=== PATIENT | female | born 1960 | race Caucasian/White ===

== ENCOUNTER → 2019-01-09 | Outpatient (CLI) | payer BC ==
[2019-01-09 12:34] LABS: BASOPHILS % (AUTO) 0 % (0-10); EOSINOPHILS % (AUTO) 22 % (0-10); HEMATOCRIT 30 % (35-52); HEMOGLOBIN 9.4 G/DL (11.5-16.0); LYMPHOCYTES # (AUTO) 1.2 X 10^3 (1.0-4.0); LYMPHOCYTES % (AUTO) 9 % (12-44); MEAN CORPUSCULAR HEMOGLOBIN 30 PG (25-34); MEAN CORPUSCULAR HGB CONC 32 G/DL (32-36); MEAN CORPUSCULAR VOLUME 93 FL (80-99); MEAN PLATELET VOLUME 8.4 FL (7.4-10.4); MONOCYTES # (AUTO) 1.2 X 10^3 (0.0-1.0); MONOCYTES % (AUTO) 9 % (0-12); NEUTROPHILS # (AUTO) 8.2 X 10^3 (1.8-7.8); NEUTROPHILS % (AUTO) 60 % (42-75); PLATELET COUNT 371 10^3/uL (130-400); RED CELL DISTRIBUTION WIDTH 12.5 % (10.0-14.5); WHITE BLOOD COUNT 13.6 10^3/uL (4.3-11.0)
[2019-01-09 13:00] LABS: BAND NEUTROPHILS 0 %; BASOPHILS % (MANUAL) 1 %; EOSINOPHILS % (MANUAL) 22 %; ERYTHROCYTE SEDIMENTATION RATE > 140 MM/HR (0-30); LYMPHOCYTES % (MANUAL) 13 %; MONOCYTES % (MANUAL) 8 %; NEUTROPHILS % (MANUAL) 56 %; RBC MORPH NORMAL
[2019-01-09 13:09] LABS: ALBUMIN 3.5 GM/DL (3.2-4.5); BILIRUBIN,TOTAL 0.2 MG/DL (0.1-1.0); CALCIUM 9.3 MG/DL (8.5-10.1); CREATININE SERUM 1.06 MG/DL (0.60-1.30)
--- NOTE | 2019-01-09 13:15 | Diagnostic Imaging Report ---
INDICATION: Fever and cough. Time of exam 12:54 p.m. COMPARISON: No prior studies are available for comparison. FINDINGS: Heart is mildly enlarged. There appears to be some patchy infiltrate in the upper lobes bilaterally particularly on the right. Lower lung brewster are clear. There is no effusion or pneumothorax. The lungs are hyperinflated consistent with COPD. IMPRESSION: Patchy bilateral upper lobe pulmonary infiltrates suggestive of pneumonia. Dictated by: Dictated on workstation # [id number]
== END ==
LOC: RAD 12:12
PROVIDERS: ATTEND Nurse Practitioner Family
DX: R91.8 Other nonspecific abnormal finding of lung field (principal); R50.9 Fever, unspecified; R05 Cough
CPT/HCPCS: 36415; 71046; 80053; 85007; 85027; 85652

== ENCOUNTER 2019-01-30 13:58 | Outpatient (CLI) | payer BC ==
[2019-01-30] MEDS ORDERED: NS IV 1000 ML 1,000 ML ONE (14:04)
[2019-01-30] MEDS ORDERED: NS IV 1000 ML 1,000 ML IV ONE (14:30)
[2019-01-30] MEDS ORDERED: PANTOPRAZOLE 40 MG (PROTONIX) VIAL IV ONE (14:30)
[2019-01-30] MEDS ORDERED: ALPRAZolam 0.25 MG (XANAX) TAB PO ONE (14:30)
[2019-01-30 15:37] VITALS: BP 154/83
[2019-01-30] MEDS ORDERED: ADVAIR (17:07)
[2019-01-30] MEDS ORDERED: PRAVASTATIN PO (17:07)
--- NOTE | 2019-01-30 21:39 | Diagnostic Imaging Report ---
PA and lateral chest at 250 hours. INDICATION: Pneumonia. FINDINGS: The heart size is within normal limits and stable when compared to 01/09/2019. The prior study did note patchy alveolar/interstitial infiltrates involving both upper lobes, particularly on the right. On this study, both upper lobes do seem much better aerated. There is little if any residual density still present. The lung bases are generally clear. There is no pleural effusion identified. The mediastinum is not widened. The osseous structures are intact. IMPRESSION: The appearance of the chest has improved since the prior exam as both lungs do seem better aerated. There is little if any residual pneumonia/atelectasis still present involving the upper lobes. Dictated by: Dictated on workstation # [id number]
== END 2019-01-30 15:37 | disposition home or self-care (01) ==
LOC: SDC 13:58
PROVIDERS: ATTEND Family Medicine
DX: E86.0 Dehydration (principal); J18.9 Pneumonia, unspecified organism; R63.0 Anorexia; R10.13 Epigastric pain
CPT/HCPCS: 71046; 96360; 96374

== ENCOUNTER 2019-02-03 14:13 | Emergency (ER) | payer BC ==
[~2019-02-03] VITALS: Ht 157.5 cm; Wt 43.1 kg
[~2019-02-03 14:13] MED LIST: ADVAIR; PRAVASTATIN PO
--- OUTSIDE RECORDS SUMMARY | 2019-02-03 14:17 | XMS REPORT | Continuity of Care Document ---
Author Organization Unknown Address Unknown Allergies Active Description Code Type Severity Reaction Onset Reported/Identified Relationship to Patient Clinical Status Yes No Known Drug Allergies [id number] Drug Allergy Unknown N/A 01/30/2019 Medications There is no data. Problems Date Dx Coded Attending Type Code Diagnosis Diagnosed By 01/10/2019 IVAN RIDLEY APRN Ot R05 COUGH 01/10/2019 IVAN RIDLEY APRN Ot R50.9 FEVER, UNSPECIFIED 01/10/2019 IVAN RIDLEY APRN Ot R91.8 OTHER NONSPECIFIC ABNORMAL FINDING OF RAMANA 01/26/2019 IVAN RIDLEY APRN Ot R05 COUGH 01/26/2019 IVAN RIDLEY APRN Ot R50.9 FEVER, UNSPECIFIED 01/26/2019 IVAN RIDLEY APRN Ot R91.8 OTHER NONSPECIFIC ABNORMAL FINDING OF RAMANA Procedures There is no data. Results Test Result Range Complete blood count (CBC) with automated white blood cell (WBC) differential - 01/09/19 12:29 Blood leukocytes automated count (number/volume) 13.6 10*3/uL 4.3-11.0 Blood erythrocytes automated count (number/volume) 3.18 10*6/uL 4.35-5.85 Venous blood hemoglobin measurement (mass/volume) 9.4 g/dL 11.5-16.0 Blood hematocrit (volume fraction) 30 % 35-52 Automated erythrocyte mean corpuscular volume 93 [foz_us] 80-99 Automated erythrocyte mean corpuscular hemoglobin (mass per erythrocyte) 30 pg 25-34 Automated erythrocyte mean corpuscular hemoglobin concentration measurement (mass/volume) 32 g/dL 32-36 Automated erythrocyte distribution width ratio 12.5 % 10.0- 14.5 Automated blood platelet count (count/volume) 371 10*3/uL 130-400 Automated blood platelet mean volume measurement 8.4 [foz_us] 7.4-10.4 Automated blood neutrophils/100 leukocytes 60 % 42-75 Automated blood lymphocytes/100 leukocytes 9 % 12-44 Blood monocytes/100 leukocytes 9 % 0-12 Automated blood eosinophils/100 leukocytes 22 % 0-10 Automated blood basophils/100 leukocytes 0 % 0-10 Blood neutrophils automated count (number/volume) 8.2 10*3 1.8-7.8 Blood lymphocytes automated count (number/volume) 1.2 10*3 1.0-4.0 Blood monocytes automated count (number/volume) 1.2 10*3 0.0- 1.0 Automated eosinophil count 3.0 10*3/uL 0.0-0.3 Automated blood basophil count (count/volume) 0.0 10*3/uL 0.0-0.1 Blood manual differential performed detection - 01/09/19 12:29 Blood monocytes/100 leukocytes 8 % NRG Manual blood segmented neutrophils/100 leukocytes 56 % NRG Blood band neutrophils/100 leukocytes 0 % NRG Manual blood lymphocytes/100 leukocytes 13 % NRG Manual eosinophils/100 leukocytes in nose 22 % NRG Manual blood basophils/100 leukocytes 1 % NRG Blood erythrocyte morphology finding identification NORMAL NRG Erythrocyte sedimentation rate by westergren method - 01/09/19 12:29 Erythrocyte sedimentation rate by westergren method > mm 0- 30 Comprehensive metabolic panel - 01/09/19 12:29 Serum or plasma sodium measurement (moles/volume) 139 mmol/L 135-145 Serum or plasma potassium measurement (moles/volume) 4.0 mmol/L 3.6-5.0 Serum or plasma chloride measurement (moles/volume) 105 mmol/L 98-107 Carbon dioxide 22 mmol/L 21-32 Serum or plasma anion gap determination (moles/volume) 12 mmol/L 5-14 Serum or plasma urea nitrogen measurement (mass/volume) 18 mg/dL 7-18 Serum or plasma creatinine measurement (mass/volume) 1.06 mg/dL 0.60-1.30 Serum or plasma urea nitrogen/creatinine mass ratio 17 NRG Serum or plasma creatinine measurement with calculation of estimated glomerular filtration rate 53 NRG Serum or plasma glucose measurement (mass/volume) 101 mg/dL 70-105 Serum or plasma calcium measurement (mass/volume) 9.3 mg/dL 8.5-10.1 Serum or plasma total bilirubin measurement (mass/volume) 0.2 mg/dL 0.1-1.0 Serum or plasma alkaline phosphatase measurement (enzymatic activity/volume) 119 U/L 40-136 Serum or plasma aspartate aminotransferase measurement (enzymatic activity/volume) 18 U/L 5-34 Serum or plasma alanine aminotransferase measurement (enzymatic activity/volume) 23 U/L 0-55 Serum or plasma protein measurement (mass/volume) 8.0 g/dL 6.4-8.2 Serum or plasma albumin measurement (mass/volume) 3.5 g/dL 3.2-4.5 CALCIUM CORRECTED 9.7 mg/dL 8.5-10.1 Encounters ACCT No. Visit Date/Time Discharge Status Pt. Type Provider Facility Loc./Unit Complaint 01/28/18 01/27/2019 11:06:35 01/27/2019 23:59:59 [facility] Outpatient Tristan Lakhani [id number] 06/05/2014 11:42:50 06/05/2014 23:59:59 [facility] Outpatient Jl Delarosa [id number] 01/30/2019 13:58:00 01/30/2019 15:37:00 DIS Outpatient TRISTAN LAKHANI DO [facility] SDC DEHYDRATION,PNEUMONIA,ANOREXIA,DYSPEPSIA [id number] 01/09/2019 12:12:00 01/09/2019 23:59:59 [facility] Outpatient IVAN RIDLEY APRN [facility] RAD FEVER,COUGH
[2019-02-03] MEDS ORDERED: NS IV 1000 ML 1,000 ML IV SCH (14:55)
--- NOTE | 2019-02-03 15:07 | ED GI ---
General Chief Complaint: Abdominal/GI Problems Stated Complaint: POSS DEHYDRATION,SENT BY NEIL FOR FLUIDS Nursing Triage Note: PT WAS SENT OVER FROM [facility] FOR "SEVERE DEHYDRATION" PT WAS RECENTLY ON ANTIBIOTICS FOR PNEUMONIA. PT STATES SHE HAS HAD DIARRHEA AND A LOSS OF APPETITIE. PT DENIES FEVER. Sepsis Screen: No Definite Risk Source of Information: Patient Exam Limitations: No Limitations History of Present Illness Date Seen by Provider: Feb 03, 2019 Time Seen by Provider: 14:45 Initial Comments Patient presents to ER by private conveyance from home with chief complaint that yesterday she had some lab drawn by her primary care doctor, Dr. Lakhani and discovered her creatinine was 7 and her hemoglobin was low at 7. She does not have a history of chronic kidney disease. 3 weeks ago she was initiated on antibiotics for outpatient pneumonia and did not tolerate it well so Dr. Lakhani change the antibiotics and she completed 2 weeks course. She's continued to have GI distress, diarrhea, decreased appetite and has lost 10 pounds over the past 3 weeks. She is not having any pain shortness of breath or cough anymore. She said that the repeat x-ray of her chest demonstrated that the pneumonia had resolved. She does feel tired and dehydrated. She has a history of asthma but she's not having any shortness of breath, wheezing and is not using her albuterol inhaler more than usual. She states she put a normal complement of urine just prior to coming in to the ER. Allergies and Home Medications Allergies Coded Allergies: No Known Drug Allergies (Unverified , 01/30/19) Home Medications [Pravastatin] Unknown Strength , Unknown Dose PO DAILY, (Reported) Patient Home Medication List Home Medication List Reviewed: Yes Review of Systems Review of Systems Constitutional: No chills, No diaphoresis EENTM: No Blurred Vision, No Double Vision Respiratory: Denies Cough, Denies Shortness of Air Cardiovascular: Denies Chest Pain, Denies Edema Gastrointestinal: Denies Abdomen Distended, Denies Abdominal Pain; Diarrhea; Denies Nausea; Poor Appetite, Poor Fluid Intake Genitourinary: Denies Burning, Denies Discharge, Denies Drainage Musculoskeletal: No back pain, No joint pain Past Jlcadmr-Axvmvq-Kqdyvd Hx Patient Social History Alcohol Use: Denies Use Recreational Drug Use: No Smoking Status: Never a Smoker Recent Foreign Travel: No Contact w/Someone Who Travel: No Recent Infectious Disease Expo: No Physical Abuse: No Sexual Abuse: No Mistreated: No Fear: No Physical Exam Vital Signs Vital Signs - First Documented 02/03/19 14:53 Temp 98.0 Pulse 87 Resp 18 B/P (MAP) 183/84 (117) Capillary Refill : Less Than 3 Seconds Height/Weight/BMI Height: 5'2.00" Weight: 95lbs. 0oz. 43.865857ix; BMI Method:Stated General Appearance: WD/WN, no apparent distress HEENT: PERRL/EOMI, normal ENT inspection, TMs normal, pharynx normal Neck: non-tender, full range of motion, normal inspection Respiratory: chest non-tender, lungs clear, normal breath sounds, no respiratory distress, no accessory muscle use Cardiovascular: normal peripheral pulses, regular rate, rhythm, no edema Peripheral Pulses: 1+ Radial Pulses (R), 1+ Radial Pulses (L) Gastrointestinal: normal bowel sounds, non tender, soft Neurologic/Psychiatric: alert, normal mood/affect, oriented x 3 Skin: normal color, warm/dry Progress/Results/Core Measures Results/Orders Lab Results Laboratory Tests Test 02/03/19 14:55 02/03/19 14:58 02/03/19 16:24 Range/Units Sodium Level 134 L 135-145 MMOL/L Potassium Level 4.0 3.6-5.0 MMOL/L Chloride Level 100 98-107 MMOL/L Carbon Dioxide Level 22 21-32 MMOL/L Anion Gap 12 5-14 MMOL/L Blood Urea Nitrogen 57 H 7-18 MG/DL Creatinine 7.52 H 0.60-1.30 MG/DL Estimat Glomerular Filtration Rate 6 BUN/Creatinine Ratio 8 Glucose Level 100 70-105 MG/DL Calcium Level 9.2 8.5-10.1 MG/DL Corrected Calcium 9.8 8.5-10.1 MG/DL Phosphorus Level 5.4 H 2.3-4.7 MG/DL Magnesium Level 1.6 L 1.8-2.4 MG/DL Total Bilirubin 0.3 0.1-1.0 MG/DL Aspartate Amino Transf (AST/SGOT) 15 5-34 U/L Alanine Aminotransferase (ALT/SGPT) 24 0-55 U/L Alkaline Phosphatase 96 40-136 U/L Total Protein 7.7 6.4-8.2 GM/DL Albumin 3.3 3.2-4.5 GM/DL White Blood Count 13.6 H 4.3-11.0 10^3/uL Red Blood Count 2.86 L 4.35-5.85 10^6/uL Hemoglobin 8.2 L 11.5-16.0 G/DL Hematocrit 25 L 35-52 % Mean Corpuscular Volume 89 80-99 FL Mean Corpuscular Hemoglobin 29 25-34 PG Mean Corpuscular Hemoglobin Concent 32 32-36 G/DL Red Cell Distribution Width 14.4 10.0-14.5 % Platelet Count 137 130-400 10^3/uL Mean Platelet Volume 8.9 7.4-10.4 FL Neutrophils (%) (Auto) 75 42-75 % Lymphocytes (%) (Auto) 6 L 12-44 % Monocytes (%) (Auto) 8 0-12 % Eosinophils (%) (Auto) 11 H 0-10 % Basophils (%) (Auto) 0 0-10 % Neutrophils # (Auto) 10.2 H 1.8-7.8 X 10^3 Lymphocytes # (Auto) 0.8 L 1.0-4.0 X 10^3 Monocytes # (Auto) 1.0 0.0-1.0 X 10^3 Eosinophils # (Auto) 1.5 H 0.0-0.3 10^3/uL Basophils # (Auto) 0.0 0.0-0.1 10^3/uL Neutrophils % (Manual) 75 % Lymphocytes % (Manual) 8 % Monocytes % (Manual) 7 % Eosinophils % (Manual) 10 % Anisocytosis SLIGHT Helmet Cells SLIGHT Urine Color RENEE H Urine Clarity SLIGHTLY CLOUDY Urine pH 6 5-9 Urine Specific [place] 1.015 L 1.016-1.022 Urine Protein 4+ NEGATIVE Urine Glucose (UA) NEGATIVE NEGATIVE Urine Ketones NEGATIVE NEGATIVE Urine Nitrite NEGATIVE NEGATIVE Urine Bilirubin NEGATIVE NEGATIVE Urine Urobilinogen NORMAL NORMAL MG/DL Urine Leukocyte Esterase 1+ H NEGATIVE Urine RBC (Auto) 5+ H NEGATIVE Urine RBC TNTC H /HPF Urine WBC 5-10 H /HPF Urine Squamous Epithelial Cells NONE /HPF Urine Crystals PRESENT H /LPF Urine Amorphous Sediment MOD NICOL PHOSPHATE H /LPF Urine Bacteria LARGE H /HPF Urine Casts PRESENT /LPF Urine Coarse Granular Casts 2-5 H /LPF Urine Mucus SMALL H /LPF Urine Culture Indicated YES My Orders Orders - YESENIA DUFF Cbc With Automated Diff (02/03/19 14:55) Comprehensive Metabolic Panel (02/03/19 14:55) Magnesium (02/03/19 14:55) Phosphorus (02/03/19 14:55) Chest 1 View, Ap/Pa Only (02/03/19 14:55) Ed Iv/Invasive Line Start (02/03/19 14:55) Ns Iv 1000 Ml (Sodium Chloride 0.9%) (02/03/19 14:55) Ua Culture If Indicated (02/03/19 15:07) Manual Differential (02/03/19 14:58) Lorazepam Injection (Ativan Injection) (02/03/19 16:30) Ns Iv 1000 Ml (Sodium Chloride 0.9%) (02/03/19 16:30) Urine Culture (02/03/19 16:24) Medications Given in ED Current Medications Medications Dose Ordered Sig/Ulises Route Start Time Stop Time Status Last Admin Dose Admin Lorazepam 0.25 mg ONCE ONCE IVP 02/03/19 16:30 02/03/19 16:31 DC 02/03/19 16:35 0.25 MG Sodium Chloride 1,000 ml @ 100 mls/hr Q10H ONCE IV 02/03/19 16:30 02/03/19 17:01 DC 02/03/19 16:35 100 MLS/HR Vital Signs/I&O 02/03/19 14:53 Temp 98.0 Pulse 87 Resp 18 B/P (MAP) 183/84 (117) Blood Pressure Mean: 117 Progress Progress Note #1: Time: 15:05 Progress Note Repeat blood and urine, 1 L normal saline and 1 view chest x-ray. Progress Note #2: Time: 16:28 Progress Note BUN/creatinine ratio is 7, low probably due to her dehydration. No evidence of CHF or history of GI bleed. The patient does have chronically low hemoglobin in the 8-9 range, unsure what outpatient workup has been done for this. Diagnostic Imaging Diagonstic Imaging: Xray Plain Films/CT/US/NM/MRI: chest (1v) Comments [facility] [place], [place] NAME: [facility] REC#: [id number] PT STATUS: REG ER : 1960 PHYSICIAN: YESENIA DUFF MD ADMIT DATE: 02/03/19/ER Draft Date of Exam:02/03/19 CHEST 1 VIEW, AP/PA ONLY INDICATION: Dehydration. History of recent pneumonia. COMPARISON: 01/30/2019. FINDINGS: Single frontal view of the chest demonstrates normal heart size and pulmonary vascularity. The lungs are well aerated and clear. No large pleural effusion or pneumothorax is seen. The visualized osseous structures show no acute abnormalities. IMPRESSION: 1. No acute cardiopulmonary process. Dictated on workstation # [id number] Dict: 02/03/19 1525 Trans: 02/03/19 1527 [facility] [id number] Interpreted by: MEGAN MERAZ MD Electronically signed by: Reviewed: Reviewed by Me Departure Communication (PCP) Discussed the case with Dr. Lakhani. Impression Primary Impression: Acute renal failure Qualified Codes: N17.9 - Acute kidney failure, unspecified Additional Impression: Diarrhea Qualified Codes: R19.7 - Diarrhea, unspecified Disposition: XFER SHT-TRM HOSP Condition: Stable Transfer Time Spoke to Accepting Phy: 16:30 Transfer Progress Notes 1620: Triage [place] 1700: Dr Osborne on step down, CC diversion and declined the transfer. 1705: [place] Triage; 1710: Discussed the case with Dr. Thompson and he accepts the patient. Transfer Facility: [facility] EDUAR [facility] Method of Transfer: EMS Departure-Patient Inst. Referrals: TRISTAN LAKHANI DO (PCP/Family) Primary Care Physician YESENIA DUFF Feb 03, 2019 15:06
--- NOTE | 2019-02-03 15:27 | Diagnostic Imaging Report ---
INDICATION: Dehydration. History of recent pneumonia. COMPARISON: 01/30/2019. FINDINGS: Single frontal view of the chest demonstrates normal heart size and pulmonary vascularity. The lungs are well aerated and clear. No large pleural effusion or pneumothorax is seen. The visualized osseous structures show no acute abnormalities. IMPRESSION: 1. No acute cardiopulmonary process. Dictated by: Dictated on workstation # [id number]
[2019-02-03 15:39] LABS: BASOPHILS % (AUTO) 0 % (0-10); EOSINOPHILS # (AUTO) 1.5 10^3/uL (0.0-0.3); EOSINOPHILS % (AUTO) 11 % (0-10); HEMATOCRIT 25 % (35-52); HEMOGLOBIN 8.2 G/DL (11.5-16.0); LYMPHOCYTES # (AUTO) 0.8 X 10^3 (1.0-4.0); LYMPHOCYTES % (AUTO) 6 % (12-44); MEAN CORPUSCULAR HEMOGLOBIN 29 PG (25-34); MEAN CORPUSCULAR HGB CONC 32 G/DL (32-36); MEAN CORPUSCULAR VOLUME 89 FL (80-99); MEAN PLATELET VOLUME 8.9 FL (7.4-10.4); MONOCYTES % (AUTO) 8 % (0-12); NEUTROPHILS # (AUTO) 10.2 X 10^3 (1.8-7.8); NEUTROPHILS % (AUTO) 75 % (42-75); PLATELET COUNT 137 10^3/uL (130-400); RED CELL DISTRIBUTION WIDTH 14.4 % (10.0-14.5); WHITE BLOOD COUNT 13.6 10^3/uL (4.3-11.0)
[2019-02-03 15:50] LABS: ALBUMIN 3.3 GM/DL (3.2-4.5); BILIRUBIN,TOTAL 0.3 MG/DL (0.1-1.0); CALCIUM 9.2 MG/DL (8.5-10.1); CREATININE SERUM 7.52 MG/DL (0.60-1.30); MAGNESIUM 1.6 MG/DL (1.8-2.4); PHOSPHORUS 5.4 MG/DL (2.3-4.7); TOTAL PROTEIN 7.7 GM/DL (6.4-8.2)
[2019-02-03 16:23] LABS: LYMPHOCYTES % (MANUAL) 8 %; NEUTROPHILS % (MANUAL) 75 %
[2019-02-03 16:24] LABS: ANISOCYTOSIS SLIGHT; EOSINOPHILS % (MANUAL) 10 %; HELMET/BITE CELLS SLIGHT; MONOCYTES % (MANUAL) 7 %
[2019-02-03 16:30] LABS: BILIRUBIN,URINE NEGATIVE (NEGATIVE); CLARITY,URINE SLIGHTLY CLOUDY; COLOR,URINE AMBER; GLUCOSE, URINE (UA) NEGATIVE (NEGATIVE); KETONES,URINE NEGATIVE (NEGATIVE); LEUKOCYTE ESTERASE ,URINE 1+ (NEGATIVE); NITRITE,URINE NEGATIVE (NEGATIVE); PH,URINE 6 (5-9); PROTEIN,URINE 4+ (NEGATIVE); UROBILINOGEN,URINE NORMAL (NORMAL)
[2019-02-03] MEDS ORDERED: LORazepam INJ 2 MG/ML (ATIVAN) VIAL IVP ONE (16:30)
[2019-02-03] MEDS ORDERED: NS IV 1000 ML 1,000 ML IV ONE (16:30)
[2019-02-03 16:41] LABS: BACTERIA,URINE LARGE /HPF; RBC,URINE TNTC /HPF
[2019-02-03 16:42] LABS: AMORPHOUS SEDIMENT,UR MOD AMOR PHOSPHATE /LPF
[2019-02-03 19:34] VITALS: BP 183/84
== END 2019-02-03 17:01 | disposition short-term general hospital (02) ==
LOC: EDUNIT# 14:13 → ER 14:14
DX: N17.9 Acute kidney failure, unspecified (principal); R19.7 Diarrhea, unspecified; N18.3 Chronic kidney disease, stage 3 (moderate); J45.909 Unspecified asthma, uncomplicated; Z87.01 Personal history of pneumonia (recurrent)
CPT/HCPCS: 36415; 71045; 80053; 81000; 83735; 84100; 85007; 85027; 87088

== ENCOUNTER 2019-02-22 13:12 | Outpatient (RCR) | payer BC ==
[~2019-02-22] VITALS: Ht 157.5 cm; Wt 45.8 kg
[2019-02-22] MEDS ORDERED: NS IV 500 ML 500 ML ONE (14:25)
[2019-02-22] MEDS ORDERED: NS IV 500 ML 500 ML IV SCH (15:00)
[2019-02-22 15:18] VITALS: BP 128/75
--- NOTE | 2019-02-22 15:30 | NUR ---
CONTACTED DR TREJO'S RN, DINORAH, TO VERIFY PT'S HOME MEDS AND TO INQUIRE ABOUT ALLERGIES. PT STATED ON ADMIT THAT PREVIOUS ANTIBIOTICS PRESCRIBED IN DEC, 2018 FOR PNEUMONIA HAD POSSIBLY CAUSED HER RECENT "KIDNEY FAILURE" AND SUBSEQUENT DIALYSIS. PT COULD NOT REMEMBER THE ANTIBIOTICS SHE HAD BEEN ON. DINORAH STATED THEY DID NOT HAVE ANY INDICATION OF ALLERGY OR ADVERSE REACTION TO MEDICATIONS PRESCRIBED BY DR TREJO. STATES PT HAD BEEN ON DOXYCYCLINE AND OMNICEF, AND THEN HAD BEEN CHANGED TO LEVAQUIN AND ZITHROMAX.
[2019-02-22 15:35] VITALS: BP 144/80
[2019-02-22 17:15] VITALS: BP 148/87
[2019-02-22 17:47] VITALS: BP 128/75
[2019-02-22] MEDS ORDERED: FLUT1DIS26 IH (19:00)
[2019-02-22] MEDS ORDERED: MULT-974 PO (19:00)
[2019-02-22] MEDS ORDERED: PRAV20TA3 PO (19:00)
== END 2019-02-22 17:47 | disposition home or self-care (01) ==
LOC: SDC 13:12
PROVIDERS: ATTEND Internal Medicine Nephrology
DX: N18.3 Chronic kidney disease, stage 3 (moderate) (principal)
CPT/HCPCS: 36415; 36430; 86850; 86900; 86901; 86920